=== PATIENT | female | born 1995 | race African-American/Black ===

== ENCOUNTER 2016-06-22 19:45 | Emergency (ER) | payer OTHER ==
[~2016-06-22] VITALS: Ht 165.1 cm; Wt 58.0 kg
[~2016-06-22 19:45] MED LIST: CLIN1CAP5 PO; NAPR500 PO
[2016-06-22 19:47] VITALS: BP 135/92; PULSE 81; RESP 16; TEMP 97.2; O2SAT 98
[2016-06-22] MEDS ORDERED: AMOX500T PO (21:27)
[2016-06-22] MEDS ORDERED: HYDR-3366 PO (21:27)
[2016-06-22] MEDS ORDERED: KETOROLAC TROMETHAMINE 60 MG/2 ML (IM) VIAL IM ONE (21:45)
[2016-06-22] MEDS ORDERED: HYDROmorphone HCL 2 MG TAB PO ONE (21:45)
[2016-06-22] MEDS ORDERED: ONDANSETRON HCL 4 MG/2 ML VIAL IM ONE (21:45)
[2016-06-22] MEDS ORDERED: PERC5TAB12 PO (21:56)
[2016-06-22] MEDS ORDERED: MAGICADU2 SWISH-SWAL (21:56)
[2016-06-22] MEDS ORDERED: IBUP800T23 PO (21:56)
--- NOTE | 2016-06-22 21:58 | PD ---
HPI Chief Complaint: Oral / Dental Pain or Problem Time Seen by Provider: 21:57 Travel History International Travel<30 days: No Contact w/Intl Traveler<30days: No Traveled to known affect area: No History of Present Illness HPI 20-year-old female that presents to the ED for evaluation of left upper dental pain. Patient states that she had 2 teeth removed today. Per patient this was done and [facility]. Per patient she's never had this before. Per patient she was fine until tonight when she went to bed and she woke up with severe pain on the left side of her mouth. Per patient she's been taking the pain medication as well as the antibiotic as prescribed but she is concerned that there is ill pieces of tooth present. Per patient she sees white stuff that appears to be related to the tooth. Per patient she is concerned that she still has piece of tooth present and is what she is having some much pain. She denies any bleeding. She denies any chest pain or shortness of breath. No fevers chills or sweats. She rates her pain is 7 out of 10. She contacted the dentist again. she does have an allergy to iodine. PFSH Past Medical History Hx Anticoagulant Therapy: No Cardiovascular Problems: No Chemotherapy: No Cerebrovascular Accident: No Diabetes: No Diminished Hearing: No Musculoskeletal: Yes (scoliosis) Respiratory: No ?: Not LMP: 05/23/16 Menopausal: No : 3 Para: 1 Miscarriage: 2 Past Surgical History Section: Yes Hysterectomy: No Social History Alcohol Use: No Tobacco Use: Yes Substance Use: No Allergies-Medications (Allergen,Severity, Reaction): Coded Allergies: Iodine (Verified Allergy, Intermediate, 06/22/16) Uncoded Allergies: All Iodines (Allergy, Severe, MOUTH GETS RAW, 07/13/13) Reported Meds & Prescriptions Reported Meds & Active Scripts Active Percocet (Oxycodone-Acetaminophen) 5-325 mg Tab 1 Tab PO Q6H PRN Magic Mouthwash Adult Liq (Multi-Ingredient Mouthwash/Gargle) 120 Ml Susp 5 Ml SWISH-SWAL ACHS Each 5 mL contains: Nystatin 200,000 units, Diphenhydramine 4.25 mg, Viscous Lidocaine 10 mg, Rios syrup 0.8 mL Ibuprofen 800 Mg Tab 800 Mg PO Q8H PRN Reported Amoxicillin 500 Mg Tab 500 Mg PO BID [place] (Hydrocodone-Acetaminophen) 10-325 Mg Tab 1 Tab PO Q4H PRN Review of Systems Except as stated in HPI: all other systems reviewed are Neg Physical Exam Narrative GENERAL: SKIN: Warm and dry. HEAD: Atraumatic. Normocephalic. EYES: Pupils equal and round. No scleral icterus. No injection or drainage. ENT: No nasal bleeding or discharge. Mucous membranes pink and moist. Dental: Patient has an empty space on the area with the first and second molar would be , slightly tender to touch. No obvious bleeding or signs of infection noted. Patient does have what appears to be small pieces of white matter. Unclear if his dental or secondary to the gum. No sign of other deformity or abscesses noted. No bleeding. No lymphadenopathy noted. NECK: Trachea midline. No JVD. CARDIOVASCULAR: Regular rate and rhythm. RESPIRATORY: No accessory muscle use. Clear to auscultation. Breath sounds equal bilaterally. GASTROINTESTINAL: Abdomen soft, non-tender, nondistended. Hepatic and splenic margins not palpable. MUSCULOSKELETAL: Extremities without clubbing, cyanosis, or edema. No obvious deformities. NEUROLOGICAL: Awake and alert. No obvious cranial nerve deficits. Motor grossly within normal limits. Five out of 5 muscle strength in the arms and legs. Normal speech. PSYCHIATRIC: Appropriate mood and affect; insight and judgment normal. Data Data Last Documented VS Vital Signs Date Time Temp Pulse Resp B/P Pulse Ox O2 Delivery O2 Flow Rate FiO2 06/22/16 19:47 97.2 81 16 135/92 98 Room Air Orders Ketorolac Inj (Toradol Inj) (06/22/16 21:45) Hydromorphone (Dilaudid) (06/22/16 21:45) Ondansetron Inj (Zofran Inj) (06/22/16 21:45) MDM Medical Decision Making Medical Screen Exam Complete: Yes Emergency Medical Condition: Yes Medical Record Reviewed: Yes Differential Diagnosis Dental pain versus dental infection versus postop pain Narrative Course 20-year-old female that presents to the ED for evaluation of dental pain. Patient was properly examined and was found to have signs and symptoms consistent appears to be postop pain secondary to recent dental procedure. On examination do not find any sign of acute infection or cause of the pain other than the recent surgery. Patient does appear to have white matter that I do seem to agree with her to could be pieces of tooth still in there. There are small and I do not believe the patient requires any acute treatment at this time but she does need follow with a dentist for further evaluation of this. Patient was given IM pain medications here to help with her acute pain. I strongly encouraged her that she needs to follow with a dentist for further management. Patient was given prescription for anti-inflammatories including ibuprofen, magic mouthwash and percocet for pain. She understands that she needs to apply ice to the area. Follow up with PCP. See ED worsening symptoms. Diagnosis Primary Impression: Post-op pain Patient Instructions: Narcotic given in the ED, General Instructions Departure Forms: Tests/Procedures, Work Release Enter return to work date: Jun 26, 2016 Additional Instructions: Take medications as prescribed. Follow-up with dentist tomorrow See ED for any worsening symptoms. Do not drink or drive while taking pain medication. Apply ice or heat as needed for pain Possible dental matter noted on the cavity Med/Other Pt SpecificInfo: Prescription(s) given Scripts Oxycodone-Acetaminophen (Percocet)5-325 mg Tab1 Tab PO Q6H PRN (PAIN) #10 TAB Ref 0 Prov:Carol Aponte MD 06/22/16 Sasnugkr-Eurvzrtjliwktfo-Plkeowpth Liq (Magic Mouthwash Adult Liq)120 Ml Susp5 Ml SWISH-SWAL ACHS #120 ML Each 5 mL contains: Nystatin 200,000 units, Diphenhydramine 4.25 mg, Viscous Lidocaine 10 mg, Rios syrup 0.8 mL Prov:Carol Aponte MD 06/22/16 Ibuprofen 800 Mg [id number] Mg PO Q8H PRN (Pain/Inflammation) #30 TAB Prov:Carol Aponte MD 06/22/16 Disposition: 01 DISCHARGE HOME Condition: Stable Kendrick Dobbs Jun 22, 2016 21:58
== END 2016-06-22 22:31 | disposition home or self-care (01) ==
LOC: NEPE 19:45
DX: G89.18 Other acute postprocedural pain (principal); K08.89 Other specified disorders of teeth and supporting structures; Z72.0 Tobacco use; Z87.39 Personal history of other diseases of the musculoskeletal system and connective tissue
CPT/HCPCS: 96372; 99282; J1885; J2405

== ENCOUNTER 2016-07-02 00:42 | Emergency (ER) | payer MEDICAID, OTHER ==
[~2016-07-02] VITALS: Ht 165.1 cm; Wt 57.0 kg
[~2016-07-02 00:42] MED LIST changes: +AMOX500T PO; -CLIN1CAP5 PO; +HYDR-3366 PO; +IBUP800T23 PO; +MAGICADU2 SWISH-SWAL; -NAPR500 PO; +PERC5TAB12 PO
[2016-07-02 00:44] VITALS: BP 125/71; PULSE 60; RESP 14; TEMP 99; O2SAT 98
[2016-07-02] MEDS ORDERED: PERI0.126 SWISH-SPIT (01:14)
[2016-07-02] MEDS ORDERED: CLIN150 PO (01:14)
[2016-07-02] MEDS ORDERED: HYDR-3533 PO (01:14)
[2016-07-02] MEDS ORDERED: CLINDAMYCIN 150 MG CAP PO ONE (01:15)
[2016-07-02] MEDS ORDERED: ACETAMINOPHEN/HYDROcodone 325 MG/5 MG TAB PO ONE (01:15)
--- NOTE | 2016-07-02 01:22 | PD ---
HPI Chief Complaint: Oral / Dental Pain or Problem Time Seen by Provider: 01:15 Travel History International Travel<30 days: No Contact w/Intl Traveler<30days: No Traveled to known affect area: No History of Present Illness HPI 20-year-old black female presents emergency Department with complaints of dental pain. LOCATION: Left upper maxilla QUALITY: Sharp stabbing SEVERITY: 03/06 TIMING: Constant DURATION: Since she has had dental surgery 1-2 weeks ago CONTACTS: Not applicable MODIFYING FACTORS: Chewing ASSOCIATED TIME AND SYMPTOMS: Facial pain with decreased appetite PFSH Past Medical History Narrative Medical rECENT DENTAL Hx Anticoagulant Therapy: No Cardiovascular Problems: No Chemotherapy: No Cerebrovascular Accident: No Diabetes: No Diminished Hearing: No Musculoskeletal: Yes (scoliosis) Respiratory: No Tetanus Vaccination: < 5 Years Menopausal: No : 3 Para: 1 Miscarriage: 2 Past Surgical History Narrative Surgical Recent dental extraction Section: Yes Hysterectomy: No Social History Alcohol Use: No Tobacco Use: Yes Substance Use: No Allergies-Medications (Allergen,Severity, Reaction): Coded Allergies: Iodine (Verified Allergy, Intermediate, 07/02/16) Uncoded Allergies: All Iodines (Allergy, Severe, MOUTH GETS RAW, 07/13/13) Reported Meds & Prescriptions Reported Meds & Active Scripts Active Lortab (Hydrocodone-Acetaminophen) 5-325 Mg Tab 1 Tab PO Q8HR PRN Peridex Liq (Chlorhexidine Gluconate (Mouth) Liq) 0.12% Soln 10 Ml SWISH-SPIT Q8HR Cleocin (Clindamycin HCl) 150 Mg Cap 300 Mg PO Q6H Percocet (Oxycodone-Acetaminophen) 5-325 mg Tab 1 Tab PO Q6H PRN Magic Mouthwash Adult Liq (Multi-Ingredient Mouthwash/Gargle) 120 Ml Susp 5 Ml SWISH-SWAL ACHS Each 5 mL contains: Nystatin 200,000 units, Diphenhydramine 4.25 mg, Viscous Lidocaine 10 mg, Rios syrup 0.8 mL Ibuprofen 800 Mg Tab 800 Mg PO Q8H PRN Reported Amoxicillin 500 Mg Tab 500 Mg PO BID [place] (Hydrocodone-Acetaminophen) 10-325 Mg Tab 1 Tab PO Q4H PRN Review of Systems Except as stated in HPI: all other systems reviewed are Neg General / Constitutional: No: Fever, Chills Eyes: No: Blurred Vision, Photophobia HENT: Positive: Dental Difficulties, Earache, No: Headaches, Nosebleed, Gingival Bleeding Cardiovascular: No: Chest Pain or Discomfort, Palpitations Respiratory: No: Cough, Shortness of Breath Gastrointestinal: No: Nausea, Vomiting Genitourinary: No: Urgency, Frequency Physical Exam Narrative GENERAL: Well-developed, well-nourished in no acute distress. Nontoxic appearing. HEAD: Normocephalic, atraumatic. EYES: Pupils equal round and reactive. Extraocular motions intact. No scleral icterus. No injection or drainage. ENT: TMs clear without erythema. The external auditory canals clear. Nose: clear . Posterior pharynx is pink and moist. No tonsillar edema or exudate. Uvula midline. Airway patent. Patient has diffuse periodontal disease. She has a large open area of gingiva with teeth decayed to the left maxilla which are open. She is pain to percussion. NECK: Trachea midline.Supple, nontender, moves head freely. No central bony tenderness or spasm. CARDIOVASCULAR: Regular rate and rhythm without murmurs, gallops, or rubs. RESPIRATORY: Clear to auscultation. Breath sounds equal bilaterally. No wheezes , rales, or rhonchi. GASTROINTESTINAL: Abdomen soft, non-tender, nondistended. No hepato-splenomegaly , or palpable masses. No guarding. EXTREMITIES: No clubbing, cyanosis, or edema. No joint tenderness, effusion, or edema noted. BACK: Nontender without deformity or crepitance. No flank tenderness. Data Data Last Documented VS Vital Signs Date Time Temp Pulse Resp B/P Pulse Ox O2 Delivery O2 Flow Rate FiO2 07/02/16 01:25 16 07/02/16 00:44 99.0 60 125/71 98 Orders Clindamycin (Cleocin) (07/02/16 01:15) Acetamin-Hydrocod 325-5 Mg ([place] 5-325 (07/02/16 01:15) MDM Medical Decision Making Medical Screen Exam Complete: Yes Emergency Medical Condition: Yes Medical Record Reviewed: Yes Differential Diagnosis MDM: Moderate Differential diagnoses: Dental abscess, dental caries, osteitis, cellulitis Narrative Course Patient's given clindamycin 300 mg and Lortab 5 a grams by mouth. This is osteitis, dental caries, vaginitis The patient has been instructed that she needs to follow-up with her doctor or her dentist for further refill of narcotics. At time of discharge the patient now complains of vaginal irritation. She states that she has burning between her lips of her vagina. She had used a new soap area she's been applying [id number] yeast cream without relief. The symptoms of been moderate. Present for the last few days. Diagnosis Primary Impression: Osteitis Additional Impressions: Dental caries Vaginitis Patient Instructions: Narcotic given in the ED, General Instructions Additional Instructions: Rest. [place] gargles. [place] oil on cotton balls. 3 Advil every 6 hours. Peridex, clindamycin and Lortab. Discontinue your new soap. Use pnwt-lou-ijphvod badges still 4 times daily. One percent hydrocortisone cream sparingly 4 times daily. Follow-up with your doctor or your waistline joiner lockstitch for reevaluation of your vaginal complaints and next 2-3 days. No further refills of pain medications through the ER. Must be seen by her primary care doctor or your dentist for further refills. follow-up with a dentist as soon as possible. And return to the ER if any problems. Med/Other Pt SpecificInfo: Prescription(s) given Scripts Hydrocodone-Acetaminophen (Lortab)5-325 Mg Tab1 Tab PO Q8HR PRN (PAIN) #12 TAB Prov:Soni Dickerson MD 07/02/16 Chlorhexidine Gluconate (Mouth) Liq (Peridex Liq)0.12% Soln10 Ml SWISH-SPIT Q8HR #473 ML Ref 0 Prov:Soni Dickerson MD 07/02/16 Clindamycin (Cleocin)150 Mg Yre312 Mg PO Q6H #80 CAP Prov:Soni Dickerson MD 07/02/16 Disposition: 01 DISCHARGE HOME Condition: Stable Tu Wren Jul 02, 2016 01:22
== END 2016-07-02 01:47 | disposition home or self-care (01) ==
LOC: NEPB 00:42
DX: M86.9 Osteomyelitis, unspecified (principal); K02.9 Dental caries, unspecified; N76.0 Acute vaginitis; Z72.0 Tobacco use
CPT/HCPCS: 99282

== ENCOUNTER 2017-10-10 09:21 | Emergency (ER) | payer OTHER ==
[~2017-10-10] VITALS: Ht 170.2 cm; Wt 50.0 kg
[~2017-10-10 09:21] MED LIST changes: +CLIN150 PO; +HYDR-3533 PO; +IBUP1TAB7 PO; -IBUP800T23 PO; +PERI0.126 SWISH-SPIT
[2017-10-10 09:23] VITALS: BP 130/88; PULSE 62; RESP 18; TEMP 98.4; O2SAT 98
--- NOTE | 2017-10-10 09:40 | PD ---
HPI Chief Complaint: Cold / Flu Symptoms Time Seen by Provider: 09:29 Travel History International Travel<30 days: No Contact w/Intl Traveler<30days: No Traveled to known affect area: No History of Present Illness HPI Patient comes to the emergency department complaining of cold-like symptoms that began 3 days ago. Patient started off with a burning sensation in her throat since progressed into a dry cough, congestion, and posttussive emesis that was nonbloody and nonbilious. Patient reports she had a fever yesterday of 103. Denies taking anything for the fever. Patient reports she is tried using jzuk-qmc-[id number] Mucinex for symptomatic relief with no improvement of symptoms. Swallowing makes pain worse. Throat pain radiates to her ears. Denies any known sick contacts, but patient does work as a senior sql server developer. Patient reports she has not been able go to work for the last 2 days secondary to not feeling well. Denies any chest pain, shortness of breath, abdominal pain, loss change in bowel or bladder, or PFSH Past Medical History Hx Anticoagulant Therapy: No Cardiovascular Problems: No Chemotherapy: No Cerebrovascular Accident: No Diabetes: No Diminished Hearing: No Musculoskeletal: Yes (scoliosis) Respiratory: No Menopausal: No : 3 Para: 1 Miscarriage: 2 Past Surgical History Section: Yes Hysterectomy: No Social History Alcohol Use: No Tobacco Use: Yes Substance Use: No Allergies-Medications (Allergen,Severity, Reaction): Coded Allergies: iodine (Unverified Allergy, Intermediate, 10/10/17) potassium iodide (Unverified Allergy, Intermediate, 10/10/17) povidone-iodine (Unverified Allergy, Intermediate, 10/10/17) sodium iodide (Unverified Allergy, Intermediate, 10/10/17) sodium iodide (Unverified Allergy, Intermediate, 10/10/17) Uncoded Allergies: All Iodines (Allergy, Severe, MOUTH GETS RAW, 07/13/13) Reported Meds & Prescriptions Reported Meds & Active Scripts Active Zofran Odt (Ondansetron Odt) 4 Mg Tab 4 Mg SL Q6HR PRN Review of Systems Except as stated in HPI: all other systems reviewed are Neg Physical Exam Narrative GENERAL: Well-developed, well nourished, in no acute distress, and non-ill appearing. SKIN: Focused skin assessment warm and dry. HEAD: Atraumatic. Normocephalic. EYES: Pupils equal and round. EOMI. No scleral icterus. No injection or drainage. ENT: No nasal bleeding or discharge. Mucous membranes pink and moist. Tympanic membranes pearly mohamud bilaterally. Posterior pharynx nonerythematous without exudate. Uvula is midline. No tenderness to facial sinuses to palpation. NECK: Trachea midline. No cervical lymphadenopathy. Supple. No nuclear rigidity. CARDIOVASCULAR: Regular rate and rhythm. No murmur appreciated. RESPIRATORY: No accessory muscle use. No respiratory distress. Clear to auscultation. Breath sounds equal bilaterally. GASTROINTESTINAL: Abdomen soft, non-tender, nondistended, and no guarding. Hepatic and splenic margins not palpable. Normal bowel sounds x4. No pulsatile mass. MUSCULOSKELETAL: No obvious deformities. No clubbing. No cyanosis. No edema. Full range of motion. NEUROLOGICAL: Awake and alert. No obvious cranial nerve deficits. Motor grossly within normal limits. Normal speech. PSYCHIATRIC: Appropriate mood and affect; insight and judgment normal. Data Data Last Documented VS Vital Signs Date Time Temp Pulse Resp B/P (MAP) Pulse Ox O2 Delivery O2 Flow Rate FiO2 10/10/17 09:23 98.4 62 18 130/88 (102) 98 Orders Orders Influenzae A/B Antigen (10/10/17 09:40) Ondansetron Odt (Zofran Odt) (10/10/17 09:45) Benzonatate (Tessalon) (10/10/17 09:45) Group A Rapid Strep Screen (10/10/17 09:47) Strep Culture (Group A) (10/10/17 10:00) Ed Discharge Order (10/10/17 11:18) MDM Medical Decision Making Medical Screen Exam Complete: Yes Emergency Medical Condition: Yes Differential Diagnosis Strep pharyngitis, viral pharyngitis, URI, viral syndrome, influenza Narrative Course Patients symptom complex of cough and congestion is consistent with viral URI. The patient is non-ill appearing and is in no respiratory distress and comfortable. The patient moves air well and oxygen saturations are normal. There is no clinical evidence to suggest pneumonia at this time. Plan of care and management were discussed with the patient who agreed with plan. The patient was instructed to follow up with their physician and instructed to return if worsens, progressively worsening shortness of breath or difficulty breathing, persistent fever, chest pains or discomfort, inability to keep medication or fluids down with or without vomiting, or as needed. Patient in no obvious distress upon re-evaluation. All pertinent laboratory result(s) discussed with patient. Patient was asked if they wanted to speak to my attending, which the patient did not wish to do at this time. Any questions/ concerns in reference to patient diagnosis/condition discussed and clarified prior to patient's discharge. Reinforced sheer importance of close follow up with patient's primary physician or primary care clinic. Instructed patient to return to ED immediately, if symptoms return/worsen. Patient showed understanding of above instructions. Further instructions and recommendations were detailed in discharge paperwork. Patient ambulated without difficulty out of ED at discharge. Diagnosis Primary Impression: Viral URI Referrals: [facility] Patient Instructions: General Instructions, Upper Respiratory Infection (ED) Additional Instructions: Follow-up with your primary care physician in 2-3 days for evaluation. Take all medication as prescribed. Use axqe-jqm-fpesima Tylenol or ibuprofen as needed for pain and/or fever control. Follow instructions on the packaging. Drink plenty of non-caffeinated and nonalcoholic fluids. Return to the emergency department if symptoms get worse. Med/Other Pt SpecificInfo: Prescription(s) given Scripts Ondansetron Odt (Zofran Odt) 4 Mg Tab 4 MG SL Q6HR Y for Nausea/Vomiting, #12 TAB 0 Refills Prov: Carol Aponte MD 10/10/17 Disposition: 01 DISCHARGE HOME Condition: Stable Maciej Ruiz October 10, 2017 09:40
[2017-10-10] MEDS ORDERED: ONDANSETRON ODT 4 MG TAB PO ONE (09:45)
[2017-10-10] MEDS ORDERED: BENZONATATE 100 MG CAP PO ONE (09:45)
[2017-10-10] MEDS ORDERED: ZOFR4TAB3 SL (11:18)
== END 2017-10-10 11:26 | disposition home or self-care (01) ==
LOC: NEPK 09:21
DX: J06.9 Acute upper respiratory infection, unspecified (principal); B97.89 Other viral agents as the cause of diseases classified elsewhere; R05 Cough; R11.10 Vomiting, unspecified; R50.9 Fever, unspecified; R07.0 Pain in throat
CPT/HCPCS: 87081; 87804; 87880; 99283